=== PATIENT | male | born 1995 | race Caucasian/White ===

== ENCOUNTER 2018-06-22 08:06 | Emergency (ER) | payer OTHER ==
[~2018-06-22] VITALS: Ht 170.2 cm; Wt 59.0 kg
[~2018-06-22 08:06] MED LIST: NOHOMEMEDICATIONS
[2018-06-22] MEDS ORDERED: Magic Mouthwash PO (08:53)
[2018-06-22] MEDS ORDERED: AMOXICILLIN875 MG PO (08:53)
[2018-06-22] MEDS ORDERED: ACETAMINOPHEN-1 EAC1 PO (08:53)
[2018-06-22 09:01] VITALS: BP 130/71
== END 2018-06-22 09:02 | disposition home or self-care (01) ==
LOC: M.ERS 08:06
DX: J03.90 Acute tonsillitis, unspecified (principal)